=== PATIENT | female | born 1995 ===

== ENCOUNTER 2024-08-24 09:45 | Inpatient (IN) | payer OTHER ==
[~2024-08-24] VITALS: Ht 162.6 cm; Wt 120.7 kg
[2024-08-24 10:55] LABS: URINE APPEARANCE Clear; URINE BILIRRUBIN Negative (NEGATIVE); URINE BLOOD Small; URINE COLOR Yellow; URINE GLUCOSE Negative (NEGATIVE); URINE KETONE Negative (NEGATIVE); URINE LEUKOCYTE Negative; URINE NITRATE Negative; URINE PROTEIN 30 (NEGATIVE); URINE UROBILINOGEN 0.2 E.U./dl
[2024-08-24 10:58] LABS: BASO % 0.3 % (0.1-1.2); HEMATOCRIT 38.7 % (34.1-44.9); HEMOGLOBIN 12.9 g/dL (11.2-15.7); LYMPH # 2.39 (1.18-3.74); LYMPH % 23.8 % (19.3-53.1); MEAN CORPUSCULAR HEMOGLOBIN 26.3 pg (25.6-32.2); MONO # 0.63 (0.24-0.82); MONO % 6.3 % (4.7-12.5); NEUT # 6.87 (1.56-6.13); NEUT % 68.2 % (34.0-71.1); PLATELET COUNT 319 K/uL (163-369); RED BLOOD COUNT 4.91 M/uL (3.93-5.22); RED CELL DISTRIBUTION WIDTH 14.8 % (11.6-14.4)
[2024-08-24 10:59] LABS: URINE BACTERIA 408.7 uL (0.0-1933); URINE EPITHELIAL CELLS 16.4 uL (0.0-38.8); URINE RBC 16.3 uL (0.0-20.8); URINE WBC 5.6 uL (0.0-23.2)
[2024-08-24 11:16] LABS: INR 0.98; PARTIAL THROMBOPLASTIN TIME 26.3 SECONDS (22.0-34.0); PROTHROMBIN TIME 10.7 SECONDS (9.0-11.5)
[2024-08-24 11:22] LABS: URINE CAST 0.29 uL (0.0-1.40)
[2024-08-24 11:27] LABS: RH POSITIVE
[2024-08-24 11:38] VITALS: BP 150/80
[2024-08-24] MEDS ORDERED: LEVOTHYROXINE50 MC1 (11:42)
[2024-08-24] MEDS ORDERED: PANTOPRAZOLE SO40 MG (11:44)
[2024-08-24 12:00] LABS: ALBUMIN 3.7 gm/dL (3.4-5.0); BILIRUBIN TOTAL 0.34 mg/dL (0.3-1.2); CALCIUM 9.5 mg/dL (8.5-10.1); CREATININE SERUM 0.52 mg/dL (0.55-1.02); GFR 138.46; GLOBULINA 3.9 G/DL (2.4-3.5); POTASSIUM 4.07 mEq/L (3.5-5.1); TOTAL PROTEIN 7.6 gm/dL (6.4-8.2)
[2024-08-30] MEDS ORDERED: CHLORHEXIDINE GLUCONATE 120 ML BOTTLE TOP ONE (12:38)
[2024-08-30] MEDS ORDERED: CEFAZOLIN SODIUM 1,000 MG VIAL ONE (12:41)
[2024-08-30] MEDS ORDERED: LIDOCAINE HCL 1%/EPINEPHRINE 20ML VIAL IJ ONE (14:31)
[2024-08-30] MEDS ORDERED: BUPIVACAINE HCL/MPF 0.5% 30ML VIAL ONE (14:31)
[2024-08-30] MEDS ORDERED: METRONIDAZOLE/SODIUM CHLORIDE 500 MG/100 ML PIGGYBACK IV ONE (15:53)
[2024-08-30] MEDS ORDERED: SUGAMMADEX SODIUM 200 MG/2 ML VIAL IV ONE (16:43)
[2024-08-30] MEDS ORDERED: RINGERS SOLUTION,LACTATED 1,000 ML IV SCH (17:30)
[2024-08-30] MEDS ORDERED: ONDANSETRON HCL 2 MG/ML VIAL IV PRN (18:00)
[2024-08-30] MEDS ORDERED: ACETAMINOPHEN 500 MG GEL..CAP PO SCH (18:00)
[2024-08-30] MEDS ORDERED: KETOROLAC TROMETHAMINE 30 MG VIAL IV SCH (18:00)
[2024-08-30] MEDS ORDERED: KETOROLAC TROMETHAMINE 30 MG VIAL ONE (20:05)
[2024-08-30] MEDS ORDERED: ONDANSETRON HCL 2 MG/ML VIAL ONE (20:53)
[2024-08-30] MEDS ORDERED: GABAPENTIN 300 MG CAPSULE PO SCH (21:00)
[2024-08-30] MEDS ORDERED: FAMOTIDINE/PF 20 MG in 0.9 % SODIUM CHLORIDE 8 ML IV PUSH SCH (21:00)
[2024-08-30] MEDS ORDERED: MORPHINE SULFATE 4 MG/ML VIAL IV ONE (21:40)
[2024-08-30] MEDS ORDERED: MORPHINE SULFATE 4 MG/ML CARTRIDGE IV PRN (22:30)
[2024-08-31] MEDS ORDERED: KETOROLAC TROMETHAMINE 30 MG VIAL ONE (00:18)
[2024-08-31 04:00] VITALS: BP 148/83; O2SAT 95
[2024-08-31] MEDS ORDERED: LEVOTHYROXINE SODIUM 50 MCG TABLET PO SCH (06:00)
[2024-08-31 06:59] LABS: BASO % 0.2 % (0.1-1.2); EOS # 0.02 (0.04-0.54); EOS % 0.2 % (0.7-7.0); HEMATOCRIT 32.9 % (34.1-44.9); HEMOGLOBIN 11.2 g/dL (11.2-15.7); LYMPH % 20.2 % (19.3-53.1); MEAN CORPUSCULAR HEMOGLOBIN 26.8 pg (25.6-32.2); MONO % 8.8 % (4.7-12.5); NEUT # 8.02 (1.56-6.13); NEUT % 70.2 % (34.0-71.1); PLATELET COUNT 264 K/uL (163-369); RED BLOOD COUNT 4.18 M/uL (3.93-5.22); RED CELL DISTRIBUTION WIDTH 14.9 % (11.6-14.4)
[2024-08-31] MEDS ORDERED: OxyCODONE HCL 5 MG TABLET (ROXICODONE) PO PRN (08:00)
[2024-08-31 08:19] VITALS: BP 126/80; O2SAT 97
[2024-08-31 16:19] VITALS: BP 145/90; O2SAT 97
[2024-08-31 22:26] VITALS: BP 132/88; O2SAT 97
[2024-09-01 07:30] VITALS: BP 135/81; O2SAT 95
== END 2024-09-01 15:49 | disposition home or self-care (01) | DRG 743 ==
LOC: EDSTATUS 09:45 → O/R 08-30 08:18 → SURG 08-30 08:18 → SURH 08-30 09:15 → SURG 08-30 21:54
PROVIDERS: ADMIT Student in an Organized Health Care Education/Training Program; ATTEND Student in an Organized Health Care Education/Training Program
PROC: 0UT74ZZ Resection of Bilateral Fallopian Tubes, Percutaneous Endoscopic Approach (ICD-10-PCS; 2024-08-30)
PROC: 0DBW4ZZ Excision of Peritoneum, Percutaneous Endoscopic Approach (ICD-10-PCS; 2024-08-30)
PROC: 0TN74ZZ Release Left Ureter, Percutaneous Endoscopic Approach (ICD-10-PCS; 2024-08-30)
PROC: 0TJB8ZZ Inspection of Bladder, Via Natural or Artificial Opening Endoscopic (ICD-10-PCS; 2024-08-30)
PROC: 0UT94ZZ Resection of Uterus, Percutaneous Endoscopic Approach (ICD-10-PCS; principal; 2024-08-30 09:15)
DX: N72 Inflammatory disease of cervix uteri (principal); N80.9 Endometriosis, unspecified; Z90.710 Acquired absence of both cervix and uterus; N94.4 Primary dysmenorrhea; R10.2 Pelvic and perineal pain